=== PATIENT | male | born 1985 | race Caucasian/White ===

== ENCOUNTER 2017-08-25 14:30 | Emergency (ER) | payer OTHER ==
[2017-08-25 14:43] VITALS: BMI 29.5
--- NOTE | 2017-08-25 14:47 | PDOC ---
History of Present Illness - General History Source: Patient Exam Limitations: No Limitations - History of Present Illness Initial Comments: 08/25/17 16:02 32 y.o male with significant past medical history of complete T9 spinal cord injury (2016), spinal cord stimulator implantation and explantation, neurogenic bladder, hemicolectomy, and appendectomy, who presents to the emergency room today complaining of 3 days of body aches, chills, nausea, vomiting and abdominal pain. The patient explains the abdominal pain is intermittent, localized to the epigastric area, and sharp. He reports multiple episodes of nonbloody, nonbilious vomiting over the past 3 days and also notes that his urine has been unusually dark brown. The patient states that he has been around others who were recently ill with the a stomach bug. He denies diarrhea, bloody , and tarry stool. He denies hematuria, dysuria, or urinary frequency. Denies chest pain, SOB. Denies recent travel or antibiotics. Allergies: NKDA Social Hx: Occasional alcohol use. Marijuana use. PCP: Dr. Mcknight <Aura Bryson - Last Filed: 08/25/17 16:11> <Amarilis Philippe - Last Filed: 08/29/17 18:57> - General Chief Complaint: Nausea/Vomiting Stated Complaint: NAUSEA, VOMITING, BODY ACHES, URINARY SX Past History <Aura Bryson - Last Filed: 08/25/17 16:11> - Past Medical History COPD: No GI Disorders: Yes (NEUROGENIC BOWEL) Disorders: Yes (NEUROGENIC BLADDER) Other medical history: T9 COMPLETE - Surgical History Abdominal Surgery: Yes (RT HEMICOLECTOMY) - Suicide/Smoking/Psychosocial Hx Smoking Status: Yes Smoking History: Unknown if ever smoked Number of Cigarettes Smoked Daily: 2 <Amarilis Philippe - Last Filed: 08/29/17 18:57> - Past Medical History Allergies/Adverse Reactions: Allergies Allergy/AdvReac Type Severity Reaction Status Date / Time No Known Allergies Allergy Verified 08/25/17 14:32 Home Medications: Ambulatory Orders Bupropion HCl [Wellbutrin Xl] 300 mg PO DAILY 08/25/17 Esomeprazole Magnesium [Nexium 24Hr] 20 mg PO DAILY #14 tablet. 08/25/17 Gabapentin 300 mg PO TID 08/25/17 Methenamine Hippurate [Hiprex [Nf] -] 1 gm PO DAILY 08/25/17 Naproxen 500 mg PO BID PRN #14 tablet 08/25/17 Ondansetron HCl [Zofran] 4 mg PO TID PRN #14 tablet 08/25/17 Sulfamethoxazole/Trimethoprim [Bactrim Ds Tablet] 1 each PO BID #27 tablet 08/25 Venlafaxine HCl [Effexor -] 225 mg PO DAILY 08/25/17 Review of Systems - Review of Systems Able to Perform ROS?: Yes Comments:: 08/25/17 16:02 GENERAL/CONSTITUTIONAL: +body aches, chills. No weakness. HEAD, EYES, EARS, NOSE AND THROAT: No change in vision. No ear pain or discharge. No sore throat. GASTROINTESTINAL:+nausea, +vomiting, +abdominal pain.No diarrhea or constipation. GENITOURINARY: No dysuria, frequency, or change in urination. CARDIOVASCULAR: No chest pain or shortness of breath. RESPIRATORY: No cough, wheezing, or hemoptysis. MUSCULOSKELETAL: No joint or muscle swelling or pain. No neck or back pain. SKIN: No rash NEUROLOGIC: No headache, vertigo, loss of consciousness, or change in strength/ sensation. ENDOCRINE: No increased thirst. No abnormal weight change. HEMATOLOGIC/LYMPHATIC: No anemia, easy bleeding, or history of blood clots. ALLERGIC/IMMUNOLOGIC: No hives or skin allergy. <Nick Brysonssica - Last Filed: 08/25/17 16:11> *Physical Exam - Vital Signs Last Vital Signs Temp Pulse Resp BP Pulse Ox 100.3 F H 103 H 20 150/85 97 08/25/17 14:30 08/25/17 14:30 08/25/17 14:30 08/25/17 14:30 08/25/17 14:30 - Physical Exam Comments: 08/25/17 16:03 GENERAL: Awake, alert, and fully oriented, in no acute distress HEAD: No signs of trauma EYES: PERRLA, EOMI, sclera anicteric, conjunctiva clear ENT: Auricles normal inspection, hearing grossly normal, nares patent, oropharynx clear without exudates. Moist mucosa NECK: Normal ROM, supple, no lymphadenopathy, JVD, or masses LUNGS: Breath sounds equal, clear to auscultation bilaterally. No wheezes, and no crackles HEART: Regular rate and rhythm, normal S1 and S2, no murmurs, rubs or gallops ABDOMEN: +large midline abdominal scar. Soft, nontender, normoactive bowel sounds. No guarding, no rebound. No masses EXTREMITIES: Normal range of motion, no edema. No clubbing or cyanosis. No cords, erythema, or tenderness BACK: No midline spinal tenderness in cervical/thoracic/lumbar region NEUROLOGICAL: Normal speech, cranial nerves intact, negative pronator drift, 5/ 5 strength in all 4 extremities, normal sensation to light touch in all 4 extremities, normal cerebellar exam, normal gait, normal reflexes and tone SKIN: Warm, Dry, normal turgor, no rashes or lesions noted. <Aura Bryson - Last Filed: 08/25/17 16:11> - Vital Signs Last Vital Signs Temp Pulse Resp BP Pulse Ox 100.3 F H 103 H 20 150/85 97 08/25/17 14:30 08/25/17 14:30 08/25/17 14:30 08/25/17 14:30 08/25/17 14:30 <Amarilis Philippe - Last Filed: 08/29/17 18:57> ED Treatment Course - LABORATORY CBC & Chemistry Diagram: 08/25/17 15:50 08/25/17 15:50 - ADDITIONAL ORDERS Additional order review: Laboratory Results 08/25/17 14:53 Urine Color Yellow Urine Appearance Cloudy Urine pH 6.5 Ur Specific [place] 1.015 Urine Protein 2+ H Urine Glucose (UA) Negative Urine Ketones Negative Urine Blood 3+ H Urine Nitrite Positive Urine Bilirubin Negative Urine Urobilinogen 0.2 Ur Leukocyte Esterase 3+ H - Medications Given in the ED: ED Medications Discontinued Medications Generic Name Dose Route Start Last Admin Trade Name Freq PRN Reason Stop Dose Admin Acetaminophen 1,000 mg 08/25/17 15:18 08/25/17 15:35 Tylenol - PO 08/25/17 15:19 1,000 mg ONCE ONE Administration Famotidine/Sodium Chloride 20 mg in 50 mls @ 100 mls/hr 08/25/17 15:17 15:48 Pepcid 20 Mg Premixed Ivpb - IVPB 08/25/17 15:46 100 mls/hr ONCE ONE Administration Ondansetron HCl 4 mg 08/25/17 15:17 08/25/17 15:30 Zofran Injection IVPUSH 08/25/17 15:18 4 mg ONCE ONE Administration Sodium Chloride 1,000 ml 08/25/17 15:17 08/25/17 15:30 Normal Saline - IV 08/25/17 15:18 1,000 ml ONCE ONE Administration <Aura Bryson - Last Filed: 08/25/17 16:11> - LABORATORY CBC & Chemistry Diagram: 08/25/17 15:50 08/25/17 15:50 <Amarilis Philippe - Last Filed: 08/29/17 18:57> Medical Decision Making - Medical Decision Making 08/25/17 16:35 32-year-old male history of T9 spinal injury complicated by neurogenic bladder presents with epigastric abdominal pain, nausea, vomiting as well as dark urine. Vitals remarkable for fever to 100.3 and slight tachycardia. Exam with benign abdomen, no tenderness to palpation and no CVA tenderness. Differential includes but is not limited to gastroenteritis versus viral syndrome versus pyelonephritis versus cystitis. Will obtain labs, urinalysis and give fluids, antiemetics, Tylenol for fever, and Pepcid for epigastric pain. 08/25/17 17:39 Repeat heart rate 92. Urinalysis nitrite positive and 3+ leuk esterase, patient likely has UTI. Patient has been drinking carolyn matthew during ED stay and tolerating. Labs remarkable for leukocytosis to 12.8 and mild hyponatremia to 132 consistent with possible UTI. No previous urine cultures in our EMR. Patient reports previous UTIs, but does not remember which antibiotics he got. Will treat as pyelonephritis with 14 day course of Bactrim as patient had fever , and nausea/vomiting. Advised pt to f/u with PMD within 1-2 days. <Amarilis Philippe - Last Filed: 08/29/17 18:57> *DC/Admit/Observation/Transfer - Attestations Scribe Attestion: 08/25/17 16:03 Documentation prepared by XIMENA Briscoe, acting as medical authorization specialist for Amarilis Philippe MD. <Aura Bryson - Last Filed: 08/25/17 16:11> - Attestations Physician Attestion: 08/29/17 18:57 I, Dr. Amarilis Philippe MD, attest that this document has been prepared under my direction and personally reviewed by me in its entirety. I further attest, that it accurately reflects all work, treatment, procedures and medical decision -making performed by me. <Amarilis Philippe - Last Filed: 08/29/17 18:57> Diagnosis at time of Disposition: Urinary Tract Infection - Discharge Dispostion Disposition: HOME Condition at time of disposition: Stable - Prescriptions Prescriptions: Esomeprazole Magnesium [Nexium 24Hr] 20 mg PO DAILY #14 tablet. Naproxen 500 mg PO BID PRN #14 tablet PRN Reason: Pain Ondansetron HCl [Zofran] 4 mg PO TID PRN #14 tablet PRN Reason: Nausea Sulfamethoxazole/Trimethoprim [Bactrim Ds Tablet] 1 each PO BID #27 tablet - Patient Instructions Printed Discharge Instructions: Urinary Tract Infection Additional Instructions: Follow up with Dr. Mcknight within 2-3 days. Drink plenty of fluids. Take your antibiotics as prescribed. Return to the emergency department if you have any new, worsening, or concerning symptoms.
[2017-08-25] MEDS ORDERED: FAMOTIDINE 20 MG/50 ML IVPB 20 MG/50 ML MG IVPB ONE ×2 (15:17→15:46)
[2017-08-25] MEDS ORDERED: SODIUM CHLORIDE 0.9% 500 ML INFUS.BAG IV ONE (15:17)
[2017-08-25] MEDS ORDERED: ONDANSETRON 4 MG/2 ML VIAL IVPUSH ONE (15:17)
[2017-08-25] MEDS ORDERED: ACETAMINOPHEN 500 MG TABLET (FP) PO ONE (15:18)
[2017-08-25] MEDS ORDERED: ONDANSETRON 4 MG/2 ML VIAL ONE (15:21)
[2017-08-25] MEDS ORDERED: ACETAMINOPHEN 500 MG TABLET (FP) ONE (15:21)
[2017-08-25 15:45] LABS: PH,URINE 6.5 (4.5-8); URINE BILIRUBIN Negative (NEGATIVE); URINE GLUCOSE (UA) Negative (NEGATIVE); URINE KETONE Negative (NEGATIVE); URINE NITRITE Positive (NEGATIVE); URINE UROBILINOGEN 0.2 (0.2-1.0)
[2017-08-25 15:51] LABS: URINE APPEARANCE CLOUDY; URINE BLOOD 3+ (NEGATIVE); URINE COLOR YELLOW; URINE PROTEIN 2+ (NEGATIVE)
[2017-08-25 16:13] LABS: ALBUMIN 3.9 g/dl (3.5-5.0); ALK PHOS 94 U/L (32-92); ANION GAP 9 (8-16); BILIRUBIN,TOTAL 0.4 mg/dl (0.2-1.0); BLOOD UREA NITROGEN 13 mg/dl (7-18); CALCIUM 9.4 mg/dl (8.4-10.2); CHLORIDE 96 mmol/L (98-107); CO2 27 mmol/L (22-28); GLUCOSE,RANDOM 113 mg/dl (74-106); POTASSIUM 3.8 mmol/L (3.5-5.1); SGOT/AST 26 U/L (10-42); SGPT/ALT 41 U/L (10-40); SODIUM 132 mmol/L (136-145); TOT PROT 7.3 g/dl (6.4-8.3)
[2017-08-25 16:16] LABS: EOS % 0.8 % (0-4.5); HEMATOCRIT 45.5 % (35.4-49); HEMOGLOBIN 14.5 GM/dl (11.7-16.9); LYMPH % 9.9 % (8-40); MCH 27.3 pg (25.7-33.7); MCHC 31.8 g/dl (32.0-35.9); MEAN CELL VOLUME 85.9 fl (80-96); MEAN PLT VOLUME 8.9 fl (7.5-11.1); MONO % 9.8 % (3.8-10.2); NEUT % 75.5 % (42.8-82.8); PLATELET COUNT 219 K/MM3 (134-434); RDW 16.2 % (11.9-15.9); WHITE BLOOD COUNT 12.8 K/mm3 (4.0-10.8)
[2017-08-25] MEDS ORDERED: SULFAMETHOXAZOLE/TRIMETHOPRIM 800MG/160MG D.S. TABLET PO ONE (17:33)
[2017-08-25 17:40] VITALS: BP 128/73; PULSE 98; TEMP 99
[2017-08-25] MEDS ORDERED: KETOROLAC TROMETHAMINE 30 MG/1 ML VIAL ONE (17:41)
[2017-08-25] MEDS ORDERED: SULFAMETHOXAZOLE/TRIMETHOPRIM 800MG/160MG D.S. TABLET ONE (18:04)
[2017-08-25 18:12] LABS: URINE BACTERIA MANY /hpf (NEGATIVE); URINE WBC MANY (0-2)
== END 2017-08-25 19:15 | disposition home or self-care (01) ==
LOC: FER 14:30
PROC: 3E033GC Introduction of Other Therapeutic Substance into Peripheral Vein, Percutaneous Approach (ICD-10-PCS; principal; 2017-08-25)
PROC: 3E0337Z Introduction of Electrolytic and Water Balance Substance into Peripheral Vein, Percutaneous Approach (ICD-10-PCS; 2017-08-25)
DX: N39.0 Urinary tract infection, site not specified (principal)
CPT/HCPCS: 36415; 80053; 81003; 81015; 82550; 85025; 87086; 87186; 99285-25

== ENCOUNTER 2025-05-08 02:47 | Emergency (ER) | payer OTHER ==
[2025-05-08 02:59] VITALS: RESP 18; BMI 41.0
[2025-05-08] MEDS ORDERED: SIMETHICONE 80 MG TAB.CHEW (FP) ONE (03:06)
[2025-05-08] MEDS ORDERED: ACETAMINOPHEN INJECTION 100 ML ONE (03:07)
[2025-05-08] MEDS: POLYETHYLENE GLYCOL (HEALTHYLAX) 3350 17 GM PACKET PO SCH (03:17)
[2025-05-08] MEDS: ACETAMINOPHEN 1000 MG/100 ML BAG IVPB ONE (03:17)
[2025-05-08] MEDS: SIMETHICONE 80 MG TAB.CHEW (FP) PO ONE (03:17)
[2025-05-08 04:02] LABS: ABSOLUTE IMMATURE GRANULOCYTES 0.09 x10^3/uL (0.0-0.031); BASOPHILS # 0.04 x10^3/uL (0.01-0.08); EOSINOPHIL % 0.9 % (0.8-7.0); EOSINOPHILS # 0.13 x10^3/uL (0.04-0.54); MCHC 32.9 g/dl (32.3-36.5); MEAN CELL VOLUME 93.3 fl (79.0-92.2); MEAN PLT VOLUME 9.5 fl (9.4-12.4); MONOCYTE # 0.67 x10^3/uL (0.30-0.82); MONOCYTE % 4.6 % (5.3-12.2); RDW 13.3 % (12.0-15.6)
[2025-05-08 04:20] LABS: INR 0.99 (0.83-1.09); PROTHROMBIN TIME (PATIENT) 10.9 SEC (9.7-13.0)
[2025-05-08 04:22] LABS: ACTIVATED PTT 29.7 SECONDS (25.2-36.5)
[2025-05-08 04:36] LABS: GLUCOSE,RANDOM 129 mg/dL (74-106); TOT PROT 7.0 g/dl (6.4-8.2)
[2025-05-08 04:37] LABS: CO2 28 mmol/L (21-32)
[2025-05-08 04:39] LABS: ALK PHOS 88 U/L (40-150)
[2025-05-08 04:42] LABS: CREATININE 0.41 mg/dL (0.55-1.3); SGOT/AST 140 U/L (5-34); SGPT/ALT 161 U/L (0-55)
[2025-05-08] MEDS: POLYETHYLENE GLYCOL (HEALTHYLAX) 3350 17 GM PACKET PO ONE (04:50)
[2025-05-08 04:54] LABS: LACTIC ACID 2.9 mmol/L (0.4-2.0)
[2025-05-08] MEDS ORDERED: KCL 10 MEQ IVPB 30 MEQ/300 ML INFUS.BAG IVPB ONE (04:59)
[2025-05-08 05:14] LABS: HCV DIAGNOSTIC IN-HOUSE W/RFLX NON-REACTIVE (NONREACTIVE)
[2025-05-08 05:15] LABS: HIV INTERPRETATION NEGATIVE (NEGATIVE)
[2025-05-08 05:48] LABS: URINE APPEARANCE CLEAR; URINE BILIRUBIN NEGATIVE (NEGATIVE); URINE COLOR YELLOW; URINE GLUCOSE (UA) NEGATIVE (NEGATIVE); URINE KETONE TRACE (NEGATIVE); URINE NITRITE POSITIVE (NEGATIVE); URINE PROTEIN NEGATIVE (NEGATIVE); URINE UROBILINOGEN 2.0 mg/dL (0.2-1.0)
[2025-05-08] MEDS: SODIUM CHLORIDE 0.9% 500 ML INFUS.BAG IV ONE (05:48)
[2025-05-08 05:49] LABS: URINE LEUK ESTERASE 1+ (NEGATIVE)
[2025-05-08] MEDS: KCL 10 MEQ IVPB 10 MEQ/100 ML INFUS.BAG IVPB SCH (06:14)
[2025-05-08] MEDS ORDERED: KETOROLAC TROMETHAMINE 30 MG/1 ML VIAL ONE (06:47)
[2025-05-08] MEDS: KETOROLAC TROMETHAMINE 30 MG/1 ML VIAL IVPUSH ONE (06:52)
[2025-05-08] MEDS: CEFTRIAXONE 1,000 MG in DEXTROSE 5%-WATER - 50 ML IVPB ONE (07:11)
[2025-05-08] MEDS ORDERED: POTASSIUM CHLORIDE ORAL LIQUID 20 MEQ/15 ML ONE (07:14)
[2025-05-08] MEDS: POTASSIUM CHLORIDE ORAL LIQUID 20 MEQ/15 ML PO ONE (07:20)
[2025-05-08 08:45] LABS: LACTIC ACID 2.5 mmol/L (0.4-2.0)
[2025-05-08 09:43] VITALS: BP 122/63; PULSE 101; TEMP 98.4
== END 2025-05-08 11:14 | disposition home or self-care (01) ==
LOC: JER 02:47
PROC: 3E033NZ Introduction of Analgesics, Hypnotics, Sedatives into Peripheral Vein, Percutaneous Approach (ICD-10-PCS; principal; 2025-05-08)
PROC: 3E0333Z Introduction of Anti-inflammatory into Peripheral Vein, Percutaneous Approach (ICD-10-PCS; 2025-05-08)
DX: K59.00 Constipation, unspecified (principal); R07.81 Pleurodynia; R10.84 Generalized abdominal pain; R05.9 Cough, unspecified; R09.3 Abnormal sputum; R00.0 Tachycardia, unspecified; R14.0 Abdominal distension (gaseous)
CPT/HCPCS: 36415; 71045-TC-FY; 71275-TC; 80053; 81003; 83605; 83690; 83735; 84132; 84484; 85025; 85379; 85610; 85730; 86803; 86850; 86900; 86901; 87070; 87077; 87086; 87205; 87389; 87637-QW; 93005; 93010; 99285-25; Q9967